=== PATIENT | male | born 1980 ===

== ENCOUNTER 2017-04-26 03:52 | Emergency (ER) | payer OTHER ==
[~2017-04-26] VITALS: Ht 193 cm; Wt 99.8 kg
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
[2017-04-26 03:58] VITALS: BP 144/81
[2017-04-26] MEDS ORDERED: IBUPROFEN800 M1 PO (04:02)
[2017-04-26] MEDS ORDERED: CYCLOBENZAPRINE10 M1 PO (04:02)
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
== END 2017-04-26 05:33 ==
LOC: ERH 03:52
DX: S16.1XXA Strain of muscle, fascia and tendon at neck level, initial encounter (principal); V47.5XXA Car driver injured in collision with fixed or stationary object in traffic accident, initial encounter; Y92.410 Unspecified street and highway as the place of occurrence of the external cause
CPT/HCPCS: 73030-LT; 74176; 96372; J1885